=== PATIENT | male | born 1950 | race African-American/Black ===

== ENCOUNTER 2017-03-24 16:13 | Inpatient (IN) | END 2017-03-25 13:57 | disposition home or self-care (01) | DRG 558 ==

== ENCOUNTER 2017-05-21 13:04 | Emergency (ER) | END 2017-05-21 19:32 | disposition home or self-care (01) ==

== ENCOUNTER 2017-06-22 23:30 | Inpatient (IN) | END 2017-06-23 15:55 | disposition home or self-care (01) | DRG 292 ==

== ENCOUNTER 2018-03-23 13:17 | Observation (INO) | payer OTHER ==
[~2018-03-23] VITALS: Ht 177.8 cm; Wt 95.1 kg
[~2018-03-23 13:17] MED LIST: CAR8 PO; COU10 PO; DILT120C77 PO; ERGO500013 PO; FURO20TA3 PO; INSU100I12 SQ; LABE100T7 PO; LANT3I SC; LATA2.5D19 BOTH EYES; MAGN400T28 PO; MULTI PO; MYCO250C3 PO; PANT20TA2 PO; PHOS250T2 PO; PRED5TAB PO; TACR0.5C18 PO; TACR1CAP26 PO; VALC450 PO
[2018-03-23] MEDS ORDERED: NITROGLYCERIN 2% 1 GM OINT PKT TD STA (13:22)
[2018-03-23] MEDS ORDERED: FUROSEMIDE 40 MG INJ IV STA (13:22)
[2018-03-23] MEDS ORDERED: CEFEPIME 1GM/50 ML (PMX) 50 ML IVPB ONE (14:30)
[2018-03-23] MEDS ORDERED: VANCOMYCIN 1 GM (PMX) 250 ML IVPB ONE (14:30)
[2018-03-23] MEDS ORDERED: BUME1TAB PO (14:46)
[2018-03-23] MEDS ORDERED: DILT360C27 ORAL (14:46)
[2018-03-23] MEDS ORDERED: CARV12.598 PO (14:50)
[2018-03-23] MEDS ORDERED: CARV6.25 PO (14:50)
[2018-03-23] MEDS ORDERED: MYCO250C3 PO (14:50)
[2018-03-23] MEDS ORDERED: MAGN400T28 PO (14:53)
[2018-03-23] MEDS ORDERED: LANT3I SC (14:53)
[2018-03-23] MEDS ORDERED: IRBE300T15 PO (14:53)
[2018-03-23] MEDS ORDERED: APIX5TAB PO (14:54)
--- NOTE | 2018-03-23 14:55 | ERD ---
ER Documentation Chief Complaint Chief Complaint SOB sudden onset started 2 hour ago HPI Patient is a 67-year-old male with a history of kidney transplant, diabetes, hypertension, and CHF who presents with shortness of breath. The patient was brought in by ambulance. The patient had shortness of breath and high blood pressure. Oxygen saturation was 88% by paramedics. He was given nitroglycerin and oxygen. His symptoms started 1 hour ago. Upon review of old medical records this is the patient's fourth visit to the ER with admissions since 2018. ROS All systems reviewed and are negative except as per history of present illness. Medications Home Meds Active Scripts Furosemide* (Furosemide*) 20 Mg Tablet, 20 MG PO DAILY, #60 TAB Prov:JONO LAMBERT MD 06/23/17 Warfarin Sodium (Coumadin) 10 Mg Tablet, 10 MG PO DAILY@17 for 30 Days, #30 TAB Take your Coumadin as you were previously with no changes Prov:JONO LAMBERT MD 06/23/17 Insulin Glargine* (Lantus*) 100 Unit/Ml Soln, 40 UNIT SC QHS, #1 VIAL Prov:JONO LAMBERT MD 06/23/17 Reported Medications Carvedilol* (Coreg*) 6.25 Mg Tablet, 6.25 MG PO HS, #60 TAB 03/23/18 Carvedilol* (Coreg*) 12.5 Mg Tablet, 12.5 MG PO AM, #60 TAB 03/23/18 Mycophenolate Mofetil* (Cellcept*) 250 Mg Capsule, 500 MG PO BID, CAP 03/23/18 Bumetanide* (Bumetanide*) 1 Mg Tablet, 1 MG PO DAILY, TAB 03/23/18 Diltiazem Hcl (Diltiazem Er) 360 Mg Capsule.sa, 360 MG ORAL DAILY 03/23/18 Ergocalciferol (Vitamin D2) (VITAMIN D2) 50,000 Unit Capsule, 42024 UNIT PO Q7D, CAP 05/21/17 Insulin Lispro (Humalog Kwikpen U-100) 100 Unit/1 Ml Insuln.pen, 25 UNIT SQ TID, EA 05/21/17 Magnesium Oxide* (Magnesium Oxide*) 400 Mg Tablet, 400 MG PO TID, TAB 05/21/17 Phosphorus #1 (Phospha 250 Neutral Tablet) 250 Mg Tablet, 250 MG PO TID, TAB 05/21/17 Latanoprost (Xalatan) 2.5 Ml Drops, 1 DROP BOTH EYES QHS, #1 BOTTLE 05/21/17 Doxazosin Mesylate* (Cardura*) 8 Mg Tablet, 8 MG PO DAILY for 30 Days, TAB 05/21/17 Multivitamins* (Theragran*) 1 Tab Tab, 1 TAB PO DAILY, TAB 05/21/17 Pantoprazole* (Protonix*) 20 Mg Tablet.dr, 40 MG PO DAILY, TAB 05/21/17 Labetalol Hcl* (Labetalol Hcl*) 100 Mg Tablet, 200 MG PO TID, TAB 05/21/17 Valganciclovir* (Valcyte*) 450 Mg Tablet, 450 MG PO DAILY, TAB 05/21/17 Prednisone* (Prednisone*) 5 Mg Tab, 5 MG PO DAILY, TAB 05/21/17 Mycophenolate Mofetil* (Cellcept*) 250 Mg Capsule, 250 MG PO BID, CAP TAKE 2 TAB-9AM,AND 1 TAB-9PM 05/21/17 Tacrolimus* (Prograf*) 1 Mg Capsule, 5 MG PO Q12, CAP 05/21/17 Tacrolimus* (Prograf*) 0.5 Mg Capsule, 0.5 MG PO Q12, CAP 05/21/17 Discontinued Reported Medications Diltiazem Hcl* (Cardizem CD*) 120 Mg Cap.sr.24h, 120 MG PO DAILY, #30 CAP 05/21/17 Allergies Allergies: Coded Allergies: No Known Allergy (Unverified , 06/22/17) PMhx/Soc History of Surgery: Yes (Kidney transplan, Penile implant, hernia mesh) Anesthesia Reaction: No Hx Neurological Disorder: No Hx Respiratory Disorders: No Hx Cardiac Disorders: Yes (CHF) Hx Psychiatric Problems: No Hx Miscellaneous Medical Probl: Yes (Hep C) Hx Alcohol Use: Yes Hx Substance Use: No Hx Tobacco Use: Yes Smoking Status: Unknown if ever smoked FmHx Family History: No diabetes Physical Exam Vitals Vital Signs Date Temp Pulse Resp B/P (MAP) Pulse Ox O2 O2 Flow FiO2 Time Delivery Rate 03/23/18 Nasal 3 14:22 Cannula 03/23/18 Nasal 3.0 14:22 Cannula 03/23/18 98.1 80 20 155/98 96 14:00 (117) Physical Exam Const: No acute distress Head: Atraumatic Eyes: Normal Conjunctiva ENT: Normal External Ears, Nose and Mouth. Neck: Full range of motion. No meningismus. Resp: Decreased breath sounds bilaterally Cardio: Regular rate and rhythm, no murmurs Abd: Soft, non tender, non distended. Normal bowel sounds Skin: No petechiae or rashes Back: No midline or flank tenderness Ext: Left leg swelling greater than right Neur: Awake and alert Psych: Normal Mood and Affect Result Diagram: 03/23/18 1438 Results 24 hrs Laboratory Tests Test 03/23/18 14:38 03/23/18 14:43 White Blood Count 5.3 10^3/ul Red Blood Count 4.83 10^6/ul Hemoglobin 14.4 g/dl Hematocrit 46.8 % Mean Corpuscular Volume 96.9 fl Mean Corpuscular Hemoglobin 29.8 pg Mean Corpuscular Hemoglobin Concent 30.8 g/dl Red Cell Distribution Width 13.4 % Platelet Count 157 10^3/UL Mean Platelet Volume 10.4 fl Immature Granulocytes % 0.200 % Neutrophils % 68.8 % Lymphocytes % 22.9 % Monocytes % 6.6 % Eosinophils % 1.1 % Basophils % 0.4 % Nucleated Red Blood Cells % 0.0 /100WBC Immature Granulocytes # 0.010 10^3/ul Neutrophils # 3.6 10^3/ul Lymphocytes # 1.2 10^3/ul Monocytes # 0.4 10^3/ul Eosinophils # 0.1 10^3/ul Basophils # 0.0 10^3/ul Nucleated Red Blood Cells # 0.0 10^3/ul POC Venous Lactate 1.6 mmol/L Current Medications Medications Dose Sig/Sheila Start Time Status Last (Trade) Ordered Route PRN Stop Time Admin Dose Reason Admin 1 inch ONCE STAT 03/23/18 DC 03/23/18 Nitroglycerin TD 13:22 14:10 03/23/18 13:23 (Nitroglyceri n 2% Oint) Furosemide 20 mg ONCE STAT 03/23/18 DC 03/23/18 (Lasix) IV 13:22 14:10 03/23/18 13:23 Vancomycin 250 ml @ ONCE ONCE 03/23/18 HCl 125 mls/hr IVPB 14:30 03/23/18 16:29 Cefepime HCl 50 ml @ ONCE ONCE 03/23/18 03/23/18 100 mls/hr IVPB 14:30 14:49 03/23/18 14:59 Procedures/MDM EKG read by me: Rate/Rhythm: Atrial flutter with a regular ventricular rate Intervals: Normal Impression: A flutter without ischemia Chest x-ray shows bilateral pneumonia per radiology. Patient is a 67-year-old male who presents with shortness of breath. He was given nitroglycerin and oxygen by paramedics. His chest x-ray shows bilateral pneumonia. His EKG shows a flutter with a regular rate and no signs of ST elevations. The patient has a high risk for infection given the fact that he is on immunosuppression for his kidney transplant. Therefore he will be treated empirically with vancomycin and cefepime. The patient will need admission to the hospital. It is also possible that this could be pulmonary edema causing his shortness of breath and the patient was given nitroglycerin and Lasix. I am awaiting registration evaluation to determine the appropriate hospitalist to admit to. The patient will need admission to a telemetry bed. I doubt sepsis at this time. Departure Diagnosis: Primary Impression: PNA (pneumonia) Pneumonia type: due to unspecified organism Laterality: bilateral Lung location: lower lobe of lung Qualified Codes: J18.1 - Lobar pneumonia, unspecified organism Additional Impression: Shortness of breath Condition: JEWEL Crowe MD Mar 23, 2018 14:55
[2018-03-23] MEDS ORDERED: MELA10CA PO (14:58)
[2018-03-23] MEDS ORDERED: ACET500C5 PO (14:58)
[2018-03-23] MEDS ORDERED: UMEC1DIS INHALATION (14:58)
[2018-03-23] MEDS ORDERED: TACR4TAB PO (14:58)
[2018-03-23] MEDS ORDERED: ACETAMINOPHEN 325 MG TAB PO PRN ×2 (17:00→18:00)
[2018-03-23] MEDS ORDERED: ONDANSETRON 4 MG INJ IV PRN ×2 (17:00→18:00)
--- NOTE | 2018-03-23 17:25 | EN ---
Date/Time of Note Date/Time of Note DATE: 03/23/18 TIME: 17:12 ER Progress Note 15:10. Endorsed to me by Dr. Bautista pending response from Suzie for admission. 67-year-old male with history of diabetes, hypertension, status post renal transplant, atrial fib/flutter on Coumadin and congestive heart failure presented to the ED complaining of shortness of breath. CBC negative for leukocytosis or anemia. Chemistry no evidence of electrolyte abnormality or renal insufficiency. Troponin was 0.028. Lactate was less than 1.6 millimoles per liter. EKG revealed atrial flutter, 2-1 block without acute ischemic changes. Venous Doppler lower extremity were negative for DVT. After cultures patient was treated with presumed pneumonia with cefepime and vancomycin. Lasix 20 mg IV was given. Patient urinated over 1 L but was increasingly uncomfortable, tachycardic, hypertensive and complained of increasing suprapubic pain and distention. Abdomen is soft with suprapubic tenderness and distention. Bladder scan revealed over 1400 cc residual. Seaman catheter was placed and over 1500 cc of urine drained consistent with acute urinary retention. Symptoms resolved. Repeat EKG reveals atrial fibrillation with ventricular rate of 94 without ischemic changes. CALLS/CONSULTATIONS: 16:[address] Mar. Recommends admission to telemetry observation. MARTY ALEXIS MD Mar 23, 2018 17:24
[2018-03-23] MEDS ORDERED: NACL 0.9% 3 ML SYG IV SCH (18:00)
[2018-03-23] MEDS ORDERED: ZOLPIDEM 5 MG TAB PO PRN (18:00)
[2018-03-23] MEDS ORDERED: DOCUSATE SODIUM 100 MG CAP PO PRN (18:00)
[2018-03-23] MEDS ORDERED: FUROSEMIDE 40 MG INJ IV ONE (18:00)
[2018-03-23 18:22] VITALS: PULSE 96
[2018-03-23 18:30] VITALS: BP 177/85; PULSE 100; RESP 18
[2018-03-23] MEDS ORDERED: ACETAMINOPHEN 500 MG TAB PO PRN (18:30)
[2018-03-23 18:40] VITALS: Ht 177.8 cm; Wt 95.1 kg
[2018-03-23 20:00] VITALS: BP 173/82; PULSE 86; PULSE 92; RESP 18
[2018-03-23] MEDS ORDERED: ENOXAPARIN 40 MG/0.4 ML SYG SC SCH (20:00)
[2018-03-23] MEDS: MAGNESIUM OXIDE 400 MG TAB PO SCH (20:14)
[2018-03-23] MEDS: DOXAZOSIN 4 MG TAB PO SCH (20:14)
[2018-03-23] MEDS: MYCOPHENOLATE 250 MG CAP PO SCH (20:32)
[2018-03-23] MEDS: LATANOPROST 0.005% 2.5 ML OPH BOTH EYES SCH (20:32)
[2018-03-23] MEDS ORDERED: INSULIN GLARGINE [LANTus] (100 UNITS/ML) SYG SC SCH (21:00)
[2018-03-24] VITALS (11 sets, daily range): BP systolic 129–160; BP diastolic 60–78; PULSE 60–97; RESP 17–20
[2018-03-24] MEDS: PANTOPRAZOLE (EC) 40 MG TAB PO SCH (05:48)
[2018-03-24] MEDS ORDERED: INSULIN ASPART [NOVOLOG] 3 ML PEN SC SCH (08:00)
[2018-03-24] MEDS: CEFTRIAXONE 1 GM/NS 50 ML IVPB SCH (08:49)
[2018-03-24] MEDS: MAGNESIUM OXIDE 400 MG TAB PO SCH ×2 (08:52→22:40)
[2018-03-24] MEDS: DILTIAZEM (CD) 180 MG CAP PO SCH (08:53)
[2018-03-24] MEDS: MYCOPHENOLATE 250 MG CAP PO SCH ×2 (08:54→22:40)
[2018-03-24] MEDS: AZITHROMYCIN 250 MG TAB PO SCH (08:55)
[2018-03-24] MEDS: predniSONE 10 MG TAB PO SCH (08:55)
[2018-03-24] MEDS: SOD PHOS MONO/DIBAS 250 MG TAB PO SCH (08:55)
[2018-03-24] MEDS: LOSARTAN 50 MG TAB PO SCH (08:56)
[2018-03-24] MEDS ORDERED: CEFTRIAXONE 1 GM INJ IM ONE (09:00)
[2018-03-24] MEDS ORDERED: TACROLIMUS 4 MG PO SCH (09:00)
[2018-03-24] MEDS ORDERED: NON-FORMULARY/PATIENT OWN MED (Umeclidinium Brm-Vilanterol Tr (Anoro Ellipta) 1 EACH) INHALATION SCH (09:00)
[2018-03-24] MEDS: TACROLIMUS XX SCH ×2 (11:00→17:30)
[2018-03-24] MEDS: [UNRECOGNIZED DRUG - OTHER] XX SCH ×2 (11:00→17:30)
[2018-03-24] MEDS: MULTIVITAMINS THERAPEUTIC TAB PO SCH (11:15)
[2018-03-24] MEDS: APIXABAN 5 MG TABLET PO SCH ×2 (11:15→22:42)
[2018-03-24] MEDS: BUMETANIDE 1 MG TAB PO SCH (11:18)
[2018-03-24] MEDS ORDERED: DEXTROSE 50% 50 ML SYRINGE IV PRN ×2 (11:30)
[2018-03-24] MEDS ORDERED: DEXTROSE 50% 50 ML SYRINGE IV ONE (11:30)
[2018-03-24] MEDS ORDERED: GLUCAGON 1 MG INJ IM PRN (11:30)
[2018-03-24] MEDS ORDERED: GLUCOSE GEL 15 GRAM TUBE PO PRN ×2 (11:30)
[2018-03-24] MEDS ORDERED: GLUCOSE GEL 15 GRAM TUBE BUCCAL PRN (11:30)
--- NOTE | 2018-03-24 11:41 | HP ---
Date/Time of Note Date/Time of Note DATE: 03/24/18 TIME: 11:21 Assessment/Plan VTE Prophylaxis Risk score (from Ns)>0 risk: 5 SCD applied (from Ns): Yes Pharmacological prophylaxis: apixaban Lines/Catheters IV [facility]ter Type (from [facility]): Peripheral IV Urinary Cath still in place: Yes Reason Cath still needed: urinary retention (Episode noted.) Assessment/Plan Assessment/Plan 67-year-old male with: 1. Respiratory insufficiency, shortness of breath that could be consistent with mild diastolic CHF exacerbation. Patient on diuretics. Repeat chest x-ray pe nding. Continue Bumex, 2D echocardiogram was ordered to reevaluate ejection fraction. Weaning supplemental oxygen, Eliquis resumed. 2. Atrial flutter/fibrillation, rate controlled currently, continue outpatient medication and resume anticoagulation with Eliquis. 3. Diabetes mellitus, insulin requiring, hypoglycemic episode today, adjusting Lantus, it was already decreased to 60 units nightly from his outpatient 90 units. Pre-meal insulin decreased to 10 units q. before meals with holding pa rameters for blood glucose less than 100 pre-meal. A1c 10.5. 4. Diastolic congestive heart failure, repeat 2D echocardiogram pending, continue diuretics. 5. Possible community-acquired pneumonia, repeat chest x-ray pending, patient currently on Rocephin and azithromycin. 6. Hypertension: Continue outpatient medications. 7. Status post renal transplant, continue immunosuppressive agents including tacrolimus and prednisone. Renal function stable currently. Prophylaxis: Patient tolerating p.o. well, Eliquis resumed for stroke prophylaxis. Disposition: Patient currently on observation on telemetry, will reevaluate in the next 24 hours and if respiratory status back to baseline, will proceed with home discharge hopefully. Result Diagram: 03/24/1851603/24/18516 Results 24hrs Laboratory Tests Test 03/23/18 14:38 03/23/18 14:43 03/23/18 17:12 03/23/18 17:34 White Blood Count 5.3 Red Blood Count 4.83 # Hemoglobin 14.4 # Hematocrit 46.8 # Mean Corpuscular 96.9 Volume Mean Corpuscular 29.8 Hemoglobin Mean Corpuscular 30.8 L Hemoglobin Concent Red Cell 13.4 Distribution Width Platelet Count 157 # Mean Platelet Volume 10.4 Immature 0.200 Granulocytes % Neutrophils % 68.8 Lymphocytes % 22.9 Monocytes % 6.6 Eosinophils % 1.1 Basophils % 0.4 Nucleated Red Blood 0.0 Cells % Immature 0.010 Granulocytes # Neutrophils # 3.6 Lymphocytes # 1.2 Monocytes # 0.4 Eosinophils # 0.1 Basophils # 0.0 Nucleated Red Blood 0.0 Cells # Prothrombin Time 13.2 # Prothrombin Time 1.0 Ratio INR International 0.99 Normalized Ratio Sodium Level 144 Potassium Level 4.3 Chloride Level 108 Carbon Dioxide Level 28 Anion Gap 8 Blood Urea Nitrogen 10 Creatinine 0.70 Est Glomerular > 60 Filtrat Rate mL/min Glucose Level 97 Calcium Level 9.6 Troponin I 0.028 POC Venous Lactate 1.6 1.6 Urine Color STRAW Urine Clarity CLEAR Urine pH 8.0 Urine Specific 1.006 [place] Urine Ketones NEGATIVE Urine Nitrite NEGATIVE Urine Bilirubin NEGATIVE Urine Urobilinogen NEGATIVE Urine Leukocyte NEGATIVE Esterase Urine Microscopic 0 RBC Urine Microscopic 1 WBC Urine Bacteria FEW A Urine Mucus FEW A Urine Hemoglobin NEGATIVE Urine Glucose NEGATIVE Urine Total Protein 1+ H Test 03/23/18 18:33 03/23/18 19:12 03/23/18 20:13 03/24/18 01:12 Bedside Glucose 70 137 Lactic Acid Level 1.7 Creatine Kinase 291 H 186 Creatine Kinase 1.1 1.2 Index Creatinine Kinase MB 3.20 H 2.21 (Mass) Troponin I 0.037 0.042 Test 03/24/18 03:46 03/24/18 04:05 03/24/18 04:19 03/24/18 05:17 Bedside Glucose 53 L 70 109 White Blood Count 5.4 Red Blood Count 4.36 L Hemoglobin 13.0 L Hematocrit 42.0 Mean Corpuscular 96.3 Volume Mean Corpuscular 29.8 Hemoglobin Mean Corpuscular 31.0 L Hemoglobin Concent Red Cell 13.5 Distribution Width Platelet Count 166 Mean Platelet Volume 10.7 H Immature 0.400 Granulocytes % Neutrophils % 75.9 Lymphocytes % 13.8 L Monocytes % 8.4 Eosinophils % 1.1 Basophils % 0.4 Nucleated Red Blood 0.0 Cells % Immature 0.020 Granulocytes # Neutrophils # 4.1 Lymphocytes # 0.7 L Monocytes # 0.5 Eosinophils # 0.1 Basophils # 0.0 Nucleated Red Blood 0.0 Cells # Sodium Level 140 Potassium Level 3.5 Chloride Level 109 Carbon Dioxide Level 25 Anion Gap 6 Blood Urea Nitrogen 12 Creatinine 0.85 Est Glomerular > 60 Filtrat Rate mL/min Glucose Level 152 Hemoglobin A1c 10.5 H Calcium Level 9.1 Test 03/24/18 08:01 03/24/18 10:40 03/24/18 10:43 03/24/18 11:09 Bedside Glucose 110 41 *L 34 *L 36 *L HPI/ROS Admit Date/Time Admit Date/Time Mar 23, 2018 at 16:46 Hx of Present Illness Chief complaint: Shortness of breath History of presenting illness: This is a 67-year-old male with known history of diastolic congestive heart failure, currently on Bumex as an outpatient, status post renal transplant, diabetes mellitus insulin requiring, atrial fibrillation/flutter rate control and on Eliquis who presented the emergency department with complaint of shortness of breath for couple hours prior to ER presentation. Patient reports that he had an acute onset approximately 2 hours prior to admission, no chest pain, no palpitation reported. He has been diuresing fairly well with Bumex at home, no episodes of lower extremity edema he is reporting. He is on large doses of insulin including Lantus 90 units nightly and Humalog 15 units q. before meals, he reports that he has had hypoglycemic episodes at home in the past but unable to give us a specific number, in the ER he was noted to have a blood sugar of 53 few hours after presentation. This morning he is noted to have a significant hypoglycemia with blood sugars down to mid 30s requiring D50 to be given. Chest x-ray on admission did show some perihilar infiltrates but it is unclear if it CHF versus pneumonia, patient white blood cell is within normal and he has no other clinical signs of pneumonia. He did receive Lasix in the ER, his Bumex is resumed. He was started on antibiotics. Repeat chest x-ray pending this morning. Also Dopplers of the lower extremity were done negative for DVT, patient on Eliquis which was resumed also this morning. He is currently hemodynamically stable but hypoglycemic which is being treated. We will reevaluate later this afternoon and hopefully discharge planning in the next 24 hours if respiratory status back to baseline. Patient denies any fevers, cough at home. No sick contacts. ROS Constitutional: other (Lethargy and confusion in setting of hypoglycemic episode.) Eyes: no complaints ENT: no complaints Respiratory: shortness of breath Cardiovascular: no complaints Gastrointestinal: no complaints Genitourinary: no complaints Musculoskeletal: no complaints Skin: no complaints Neurologic: no complaints Endocrine: other (Hypoglycemia) Psychological: no complaints, nl mood/affect Immunologic: no complaints PMH/Family/Social Past Medical History Chronic AFib/flutter ESRD previously on HD now s/p renal transplant Diabetes mellitus insulin requiring Congestive heart failure, diastolic dysfunction, echocardiogram pending to reevaluate EF Hypertension Medications Current Medications IV Flush (NS 3 ml) 3 ml PER PROTOCOL IV ; Start 03/23/18 at 18:00 Ondansetron HCl (Zofran Inj) 4 mg Q6H PRN IV NAUSEA AND/OR VOMITING; Start 03/23/18 at 18:00 Zolpidem Tartrate (Ambien) 5 mg QHS PRN PO INSOMNIA; Start 03/23/18 at 18:00 Docusate Sodium (Colace) 100 mg Q12H PRN PO CONSTIPATION; Start 03/23/18 at 18:00 Pantoprazole (Protonix Tab) 40 mg DAILY@06 PO Last administered on 03/24/18at 05:48; Admin Dose 40 MG; Start 03/24/18 at 06:00 Azithromycin (Zithromax) 500 mg DAILY PO Last administered on 03/24/18at 08:55; Admin Dose 500 MG; Start 03/24/18 at 09:00 Acetaminophen (Tylenol Tab) 500 mg Q6H PRN PO PAIN LEVEL 1-3; Start 03/23/18 at 18:30 Carvedilol (Coreg) 12.5 mg AM PO Last administered on 03/24/18at 08:54; Admin D ose 12.5 MG; Start 03/24/18 at 09:00 Diltiazem HCl (Cardizem Cd) 360 mg DAILY PO Last administered on 03/24/18at 08:53; Admin Dose 360 MG; Start 03/24/18 at 09:00 Doxazosin Mesylate (Cardura) 8 mg QHS PO Last administered on 03/23/18at 20:14; Admin Dose 8 MG; Start 03/23/18 at 21:00 Latanoprost (Xalatan) 1 drop QHS BOTH EYES Last administered on 03/23/18at 20:32; Admin Dose 1 DROP; Start 03/23/18 at 21:00 Magnesium Oxide (Mag-Ox 400) 400 mg BID PO Last administered on 03/24/18at 08:52; Admin Dose 400 MG; Start 03/23/18 at 21:00 Mycophenolate Mofetil (Cellcept) 500 mg BID PO Last administered on 03/24/18at 08:54; Admin Dose 500 MG; Start 03/23/18 at 21:00 Sodium Phosphate (Kphos Neutral) 250 mg DAILY PO Last administered on 03/24/18 08:55; Admin Dose 250 MG; Start 03/24/18 at 09:00 Prednisone (Prednisone) 10 mg DAILY PO Last administered on 03/24/18 08:55; Admin Dose 10 MG; Start 03/24/18 at 09:00 Losartan Potassium (Cozaar) 100 mg DAILY PO Last administered on 03/24/18at 08:56; Admin Dose 100 MG; Start 03/24/18 at 09:00 Miscellaneous Information 4 mg DAILY PO ; Start 03/24/18 at 09:00; Status UNV Miscellaneous Information 1 each DAILY INHALATION ; Start 03/24/18 at 09:00; Status UNV Ceftriaxone Sodium 50 ml @ 100 mls/hr Q24H IVPB Last administered on 03/24/18at 08:49; Admin Dose 100 MLS/HR; Start 03/24/18 at 09:00 Insulin Glargine (Lantus) 60 units QHS SC ; Start 03/24/18 at 21:00 Hydralazine HCl (Apresoline) 25 mg Q6H PRN PO SBP GREATER THAN 160; Start 03/24/18 at 07:00 Miscellaneous Information (*Order Clarification Bulletin) MEDICATION REQUIRES CLARIFICATI... Q8H XX ; Start 03/24/18 at 11:00 Apixaban (Eliquis) 5 mg BID PO Last administered on 03/24/18 11:15; Admin Dose 5 MG; Start 03/24/18 at 11:00 Bumetanide (Bumex) 1 mg DAILY@0600 PO Last administered on 03/24/18 11:18; Admin Dose 1 MG; Start 03/24/18 at 11:00 Multivitamins Therapeutic (Theragran) 1 tab DAILY PO Last administered on 03/24/18at 11:15; Admin Dose 1 TAB; Start 03/24/18 at 11:00 Dextrose (D50w Syringe) 50 ml ONCE ONCE IV Last administered on 03/24/18at 11:16; Admin Dose 50 ML; Start 03/24/18 at 11:30; Stop 03/24/18 at 11:31 Miscellaneous Information (* Miscellaneous Pharmacy Order) HYPOGLYCEMIA PROTOCOL w... ONCE ONCE XX ; Start 03/24/18 at 11:30; Stop 03/24/18 at 11:31 Insulin Aspart (Novolog Insulin Pen) 10 unit WITH MEALS SC ; Start 03/24/18 at 12:00; Status UNV Miscellaneous Information (* Miscellaneous Pharmacy Order) Discontinue current oral sulfonylur... ONCE ONCE XX ; Start 03/24/18 at 11:30; Stop 03/24/18 at 11:31 Diagnostic Test (Pha) (Accu-Chek) 1 ea 02 XX ; Start 03/25/18 at 02:00; Status UNV Insulin Aspart (Novolog Insulin Pen) NOVOLOG *MILD* ALGORITHM WITH MEALS BEDTIME SC ; Start 03/24/18 at 12:00; Status UNV Miscellaneous Information (* Miscellaneous Pharmacy Order) Discontinue all previ... ONCE ONCE XX ; Start 03/24/18 at 11:30; Stop 03/24/18 at 11:31 Miscellaneous Information 1 ea NOTE XX ; Start 03/24/18 at 11:30 Glucose (Glutose) 15 gm Q15M PRN PO DECREASED GLUCOSE; Start 03/24/18 at 11:30 Glucose (Glutose) 22.5 gm Q15M PRN PO DECREASED GLUCOSE; Start 03/24/18 at 11:30 Dextrose (D50w Syringe) 25 ml Q15M PRN IV DECREASED GLUCOSE; Start 03/24/18 at 11:30 Dextrose (D50w Syringe) 50 ml Q15M PRN IV DECREASED GLUCOSE; Start 03/24/18 at 11:30 Glucagon (Glucagen) 1 mg Q15M PRN IM DECREASED GLUCOSE; Start 03/24/18 at 11:30 Glucose (Glutose) 15 gm Q15M PRN BUCCAL DECREASED GLUCOSE; Start 03/24/18 at 11:30 Coded Allergies: No Known Allergy (Unverified , 03/24/18) Past Surgical History S/p Renal transplant S/p hernia repair S/p Cataract surgery S/p penile implant Past Surgical Hx: other Family History Significant Family History: cancer, other (CVA) Social History Alcohol Use: sober (Quit 30 years ago) Smoking Status: Former smoker (Quit 30 years ago) Drug Use: other (Former heroin user, 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.) Exam/Review of Systems Vital Signs Vitals Vital Signs Date Temp Pulse Resp B/P (MAP) Pulse Ox O2 O2 Flow FiO2 Time Delivery Rate 03/24/18 89 17 159/78 99 Nasal 2.0 09:39 (105) Cannula 03/24/18 98.2 07:15 Intake and Output 03/23/18 03/23/18 03/24/18 1515:00 23:00 07:00 IntakeIntake Total 200 ml 800 ml OutputOutput Total 1900 ml 1300 ml BalanceBalance -1700 ml -500 ml Exam Constitutional: alert, other (Currently slightly disoriented in setting of hypoglycemia.) Head: normocephalic, atraumatic Respiratory: clear to auscultation, normal air movement Cardiovascular: irregular rhythm (Atrial flutter rate controlled.) Gastrointestinal: soft, non-tender Musculoskeletal: nl extremities to inspection Extremities: normal pulses, other (No edema, clubbing or cyanosis) Neurological: LOG BUYER II-XII intact, nl speech, confused (Likely in setting of hypoglycemia), lethargic Additional Comments PROCEDURE: XR Chest. CLINICAL INDICATION: Chest pain TECHNIQUE: Single portable view of the chest was obtained COMPARISON: No priors for comparison FINDINGS: The trachea is midline. The cardiac silhouette and pulmonary vascularity are within normal limits. Bilateral perihilar and lower lobe infiltrates are noted. The costophrenic angles are sharp. IMPRESSION: 1. Cardiomegaly. 2. Bilateral perihilar lower lobe infiltrates. Cannot exclude pneumonia in the appropriate clinical setting. RPTAT: AAPP Physician Anthony Date Time Electronically viewed and signed by Physician Anthony on 03/23/2018 13:58 PROCEDURE: US Lower extremity Venous. CLINICAL INDICATION: leg edema TECHNIQUE: Multiple sonographic images of the left lower extremity deep venous system was obtained utilizing grayscale, color-flow, compressive sonography and doppler imaging with augmentation. The images were reviewed on a PACS workstation. COMPARISON: None. FINDINGS: There is normal compressibility and flow within the left common femoral, femoral, posterior tibial, peroneal and popliteal veins. RPTAT: AA IMPRESSION: No sonographic evidence for deep venous thrombosis. .Zachary Ruiz MD, MD Date Time Electronically viewed and signed by .Zachary Ruiz MD, MD on 03/23/2018 14:32 .Eli/ BRANDON VERMA Mar 24, 2018 11:31
[2018-03-24] MEDS: INSULIN ASPART [NOVOLOG] 3 ML PEN SC SCH ×4 (14:47→17:20)
[2018-03-24] MEDS ORDERED: INSULIN GLARGINE [LANTus] (100 UNITS/ML) SYG SC SCH (21:00)
[2018-03-24] MEDS: LATANOPROST 0.005% 2.5 ML OPH BOTH EYES SCH (22:36)
[2018-03-24] MEDS: DOXAZOSIN 4 MG TAB PO SCH (22:42)
[2018-03-25] VITALS (9 sets, daily range): BP systolic 155–173; BP diastolic 62–79; PULSE 43–72; RESP 18–20
[2018-03-25] MEDS: INSULIN ASPART [NOVOLOG] 3 ML PEN SC SCH ×5 (00:16→11:25)
[2018-03-25] MEDS ORDERED: ACCU-CHEK XX SCH (02:00)
[2018-03-25] MEDS: [UNRECOGNIZED DRUG - OTHER] XX SCH ×2 (03:00→10:55)
[2018-03-25] MEDS: TACROLIMUS XX SCH ×2 (03:00→10:55)
[2018-03-25] MEDS: BUMETANIDE 1 MG TAB PO SCH (06:05)
[2018-03-25] MEDS: PANTOPRAZOLE (EC) 40 MG TAB PO SCH (06:05)
[2018-03-25] MEDS: MULTIVITAMINS THERAPEUTIC TAB PO SCH (08:38)
[2018-03-25] MEDS: CEFTRIAXONE 1 GM/NS 50 ML IVPB SCH (08:38)
[2018-03-25] MEDS: AZITHROMYCIN 250 MG TAB PO SCH (08:39)
[2018-03-25] MEDS: MYCOPHENOLATE 250 MG CAP PO SCH (08:39)
[2018-03-25] MEDS: APIXABAN 5 MG TABLET PO SCH (08:40)
[2018-03-25] MEDS: MAGNESIUM OXIDE 400 MG TAB PO SCH (08:40)
[2018-03-25] MEDS: LOSARTAN 50 MG TAB PO SCH (08:41)
[2018-03-25] MEDS: DILTIAZEM (CD) 180 MG CAP PO SCH (08:42)
[2018-03-25] MEDS: predniSONE 10 MG TAB PO SCH (08:45)
[2018-03-25] MEDS: SOD PHOS MONO/DIBAS 250 MG TAB PO SCH (10:04)
[2018-03-25] MEDS ORDERED: MAGNESIUM SULFATE 1 GM/D5W 100 ML IVPB ONE (13:00)
--- NOTE | 2018-03-25 13:12 | PDOCDIS ---
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
[2018-03-25] MEDS ORDERED: DOXY100C PO (13:16)
--- NOTE | 2018-03-25 13:26 | PN ---
Date/Time of Note Date/Time of Note DATE: 03/25/18 TIME: 13:18 Assessment/Plan VTE Prophylaxis Risk score (from Nsg)>0 risk: 6 SCD applied (from Nsg): Yes Pharmacological prophylaxis: apixaban Lines/Catheters IV Catheter Type (from Nrsg): Peripheral IV Urinary Cath still in place: No Assessment/Plan Assessment/Plan 67-year-old male with: 1. Respiratory insufficiency, shortness of breath that could be consistent with mild diastolic CHF exacerbation. Symptoms resolved. Patient back on his Bumex for diuresis, chest x-ray done yesterday afternoon was improved. Patient on room air for the past 24 hours. 2D echocardiogram did confirm diastolic dysfunction with ejection fraction of 60%. Back on Eliquis. 2. Atrial flutter/fibrillation, rate controlled currently, continue outpatient medication and on Eliquis. Patient noted to have one episode of 6 beats of VT today completely asymptomatic, 2D echocardiogram again with reserved ejection fraction and electrolytes within normal. Patient already on oral magnesium oxide to be continued, current medication to be also continued, avoiding proarrhythmic agents such as antibiotics, azithromycin or Levaquin. Azithromycin was discontinued today. 3. Diabetes mellitus, insulin requiring, blood sugars back to his baseline b orderline in the 200s, resuming outpatient insulin regimen at discharge today. Patient is to follow-up with his PCP for further titration and also be compliant with a diabetic diet for more accurate titration. No further hypoglycemic episodes. A1c 10.5. 4. Diastolic congestive heart failure, confirmed on repeat 2D echocardiogram with ejection fraction of 60%, continue outpatient dose of Bumex. 5. Possible community-acquired pneumonia, repeat chest x-ray showing mixed infiltrate, patient was noted to have 6 beats of V. tach this morning completely asymptomatic with a normal ejection fraction, no further cardiac workup needed however have discontinued azithromycin avoiding fluoroquinolone due to their tendency to prolonged QTC. Patient is being discharged on doxycycline 100 mg p.o. twice daily for 5 more days to complete 7 days treatment for possible CAP. 6. Hypertension: Continue outpatient medications. 7. Status post renal transplant, continue immunosuppressive agents including tacrolimus and prednisone. Renal function stable currently. Prophylaxis: Patient tolerating p.o. well, Eliquis for stroke prophylaxis. Disposition: Discharge home today with outpatient follow-up with his volunteer services coordinator and primary care physician. Also home health RN ordered. Result Diagram: 03/25/18 0506 03/25/18 0506 Results 24hrs Laboratory Tests Test 03/24/18 14:36 03/24/18 17:17 03/24/18 22:19 03/24/18 23:56 Bedside Glucose 327 H 271 H 274 H 314 H Test 03/25/18 04:52 03/25/18 05:06 03/25/18 07:43 03/25/18 11:21 Bedside Glucose 296 H 228 H 196 White Blood Count 3.9 #L Red Blood Count 4.48 L Hemoglobin 13.5 L Hematocrit 42.6 Mean Corpuscular 95.1 Volume Mean Corpuscular 30.1 Hemoglobin Mean Corpuscular 31.7 L Hemoglobin Concent Red Cell 13.7 Distribution Width Platelet Count 161 Mean Platelet Volume 10.8 H Immature 0.300 Granulocytes % Neutrophils % 60.9 Lymphocytes % 28.3 Monocytes % 8.4 Eosinophils % 1.3 Basophils % 0.8 Nucleated Red Blood 0.0 Cells % Immature 0.010 Granulocytes # Neutrophils # 2.4 Lymphocytes # 1.1 Monocytes # 0.3 Eosinophils # 0.1 Basophils # 0.0 Nucleated Red Blood 0.0 Cells # Sodium Level 142 Potassium Level 4.3 Chloride Level 105 Carbon Dioxide Level 26 Anion Gap 11 Blood Urea Nitrogen 13 Creatinine 0.78 Est Glomerular > 60 Filtrat Rate mL/min Glucose Level 229 #H Calcium Level 9.3 Magnesium Level 1.9 Subjective 24 Hr Interval Summary Free Text/Dictation Patient doing well, no complaints today, on room air, continue incentive spirometer, stable with his Bumex p.o. for diuresis. Renal function is stable. Blood sugars are back to his baseline. Patient ambulatory, will discharge home today with outpatient cardiology follow-up and outpatient PCP follow-up. Also home health RN check. Exam/Review of Systems Vital Signs Vitals Vital Signs Date Temp Pulse Resp B/P (MAP) Pulse Ox O2 O2 Flow FiO2 Time Delivery Rate 03/25/18 62 12:00 03/25/18 98.5 18 156/71 95 Room Air 11:17 (99) 03/24/18 2.0 21:03 Intake and Output 03/24/18 03/24/18 03/25/18 1515:00 23:00 07:00 IntakeIntake Total 50 ml 800 ml 440 ml OutputOutput Total 800 ml 850 ml BalanceBalance -750 ml 800 ml -410 ml Exam Constitutional: alert, oriented, well developed Respiratory: clear to auscultation, normal air movement Cardiovascular: irregular rhythm (Chronic A. 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, nl mental status, nl speech, nl strength Medications Medications Current Medications IV Flush (NS 3 ml) 3 ml PER PROTOCOL IV ; Start 03/23/18 at 18:00 Ondansetron HCl (Zofran Inj) 4 mg Q6H PRN IV NAUSEA AND/OR VOMITING; Start at 18:00 Zolpidem Tartrate (Ambien) 5 mg QHS PRN PO INSOMNIA; Start 03/23/18 at 18:00 Docusate Sodium (Colace) 100 mg Q12H PRN PO CONSTIPATION; Start 03/23/18 at 18:00 Pantoprazole (Protonix Tab) 40 mg DAILY@06 PO Last administered on 03/25/18at 06:05; Admin Dose 40 MG; Start 03/24/18 at 06:00 Acetaminophen (Tylenol Tab) 500 mg Q6H PRN PO PAIN LEVEL 1-3; Start 03/23/18 at 18:30 Carvedilol (Coreg) 12.5 mg AM PO Last administered on 03/25/18at 08:41; Admin Dose 12.5 MG; Start 03/24/18 at 09:00 Diltiazem HCl (Cardizem Cd) 360 mg DAILY PO Last administered on 03/25/18at 08:42; Admin Dose 360 MG; Start 03/24/18 at 09:00 Doxazosin Mesylate (Cardura) 8 mg QHS PO Last administered on 03/24/18at 22:42; Admin Dose 8 MG; Start 03/23/18 at 21:00 Latanoprost (Xalatan) 1 drop QHS BOTH EYES Last administered on 03/24/18at 22:36; Admin Dose 1 DROP; Start 03/23/18 at 21:00 Magnesium Oxide (Mag-Ox 400) 400 mg BID PO Last administered on 03/25/18at 08:40; Admin Dose 400 MG; Start 03/23/18 at 21:00 Mycophenolate Mofetil (Cellcept) 500 mg BID PO Last administered on 03/25/18 08:39; Admin Dose 500 MG; Start 03/23/18 at 21:00 Sodium Phosphate (Kphos Neutral) 250 mg DAILY PO Last administered on 03/25/18 10:04; Admin Dose 250 MG; Start 03/24/18 at 09:00 Prednisone (Prednisone) 10 mg DAILY PO Last administered on 03/25/18 08:45; Admin Dose 10 MG; Start 03/24/18 at 09:00 Losartan Potassium (Cozaar) 100 mg DAILY PO Last administered on 03/25/18 08:41; Admin Dose 100 MG; Start 03/24/18 at 09:00 Miscellaneous Information 4 mg DAILY PO ; Start 03/24/18 at 09:00; Status UNV Miscellaneous Information 1 each DAILY INHALATION ; Start 03/24/18 at 09:00; Status UNV Ceftriaxone Sodium 50 ml @ 100 mls/hr Q24H IVPB Last administered on 03/25/18 08:38; Admin Dose 100 MLS/HR; Start 03/24/18 at 09:00 Insulin Glargine (Lantus) 60 units QHS SC Last administered on 03/24/18 22:40; Admin Dose 60 UNITS; Start 03/24/18 at 21:00 Hydralazine HCl (Apresoline) 25 mg Q6H PRN PO SBP GREATER THAN 160 Last administered on 03/25/18 04:48; Admin Dose 25 MG; Start 03/24/18 at 07:00 Miscellaneous Information (*Order Clarification Bulletin) MEDICATION REQUIRES CLARIFICATI... Q8H XX Last administered on 03/25/18 03:00; Admin Dose 1 EA; Start 03/24/18 at 11:00 Apixaban (Eliquis) 5 mg BID PO Last administered on 03/25/18 08:40; Admin Dose 5 MG; Start 03/24/18 at 11:00 Bumetanide (Bumex) 1 mg DAILY@0600 PO Last administered on 03/25/18 06:05; Admin Dose 1 MG; Start 03/24/18 at 11:00 Multivitamins Therapeutic (Theragran) 1 tab DAILY PO Last administered on 03/25/18 08:38; Admin Dose 1 TAB; Start 03/24/18 at 11:00 Insulin Aspart (Novolog Insulin Pen) 10 unit WITH MEALS SC Last administered on 03/25/18at 11:25; Admin Dose 10 UNIT; Start 03/24/18 at 12:00 Diagnostic Test (Pha) (Accu-Chek) 1 ea 02 XX Last administered on 03/25/18at 02:00; Admin Dose 1 EA; Start 03/25/18 at 02:00 Insulin Aspart (Novolog Insulin Pen) NOVOLOG *MILD* ALGORITHM WITH MEALS BEDTIME SC Last administered on 03/25/18at 11:25; Admin Dose 2 UNIT; Start 03/24/18 at 12:00 Miscellaneous Information 1 ea NOTE XX ; Start 03/24/18 at 11:30 Glucose (Glutose) 15 gm Q15M PRN PO DECREASED GLUCOSE; Start 03/24/18 at 11:30 Glucose (Glutose) 22.5 gm Q15M PRN PO DECREASED GLUCOSE; Start 03/24/18 at 11:30 Dextrose (D50w Syringe) 25 ml Q15M PRN IV DECREASED GLUCOSE; Start 03/24/18 at 11:30 Dextrose (D50w Syringe) 50 ml Q15M PRN IV DECREASED GLUCOSE; Start 03/24/18 at 11:30 Glucagon (Glucagen) 1 mg Q15M PRN IM DECREASED GLUCOSE; Start 03/24/18 at 11:30 Glucose (Glutose) 15 gm Q15M PRN BUCCAL DECREASED GLUCOSE; Start 03/24/18 at 11:30 Imaging Imaging PROCEDURE: XR Chest. CLINICAL INDICATION: Shortness of breath TECHNIQUE: PA and lateral chest x-ray. COMPARISON: CHEST 03/23/2018 FINDINGS: Mild improvement in mixed bibasilar interstitial infiltrates. No pleural effusion. No pneumothorax. The cardiomediastinal silhouette is unremarkable. Vascular calcifications of the aorta are present compatible with atherosclerosis. IMPRESSION: Mild improvement in mixed bibasilar interstitial infiltrates. RPTAT: AADD .Sammy Pierre MD, MD Date Time Electronically viewed and signed by .Sammy Pierre MDMD on 03/24/2018 12:01 Echocardiogram Report Patient Name: KADE GIRON Gender: Male Date: 1950 Study Date: 24-Mar-2017 Accounts Specialist: Jyotsna Vang [facility] Location: [facility] Ref. Physician: CHIRAG HOFFMAN Quality: Good Procedures: Transthoracic echocardiogram with complete 2D, M-Mode, and doppler examination. Indications: Chest Pain. Kidney transplant patient. 2D/M Mode Doppler Measurement Value Normal Ranges Measurement Value Normal Ranges LVIDd 2D 3.9 3.5 - 5.6 cm AV Peak Catracho 1.5 m/sec LVIDs 2D 2.1 2.1 - 4.1 cm AV Peak PG 9.0 mmHg LVPWd 2D 1.8 0.6 - 1.1 cm LVOT Peak Catracho 1.2 m/sec IVSd 2D 1.6 0.6 - 1.1 cm LVOT Peak PG 5.7 mmHg AoR Diam 2D 3.1 2.0 - 3.7 cm TR Peak Catracho 2.9 m/sec EDV 2D 65.4 cm3 TR Peak PG 33.8 mmHg ESV 2D 8.8 cm3 RVSP 42.0 mmHg LA Dimen 2D 4.1 2.3 - 4.0 cm Findings Left Ventricle: Normal left ventricular systolic function. Normal left ventricular cavity size. Severe concentric left ventricular hypertrophy. Ejection fraction is visually estimated at 65 %. Abnormal Diastolic Function. Right Ventricle: Normal right ventricular size. Normal right ventricular systolic function. Left Atrium: There is mild enlargement of left atrium. Right Atrium: There is mild enlargement of right atrium. Mitral Valve: Mitral valve leaflets appear mildly thickened. Mild mitral annular calcification. Trace mitral regurgitation. Aortic Valve: Normal appearance of the aortic valve. No significant aortic stenosis or insufficiency. Tricuspid Valve: Normal appearance of the tricuspid valve. Estimated peak PA systolic pressure 42 mmHg. There is mild tricuspid regurgitation. Pulmonic Valve: Normal pulmonic valve appearance. Pericardium: Normal pericardium with no significant pericardial effusion. Aorta: Normal aortic root. IVC: Dilated IVC with respiratory collapse consistent with elevated right atrial pressure. Conclusions Normal left ventricular systolic function. Normal left ventricular cavity size. Severe concentric left ventricular hypertrophy. Ejection fraction is visually estimated at 65 %. Abnormal Diastolic Function. Normal right ventricular size. Normal right ventricular systolic function. There is mild enlargement of left atrium. There is mild enlargement of right atrium. Normal appearance of the tricuspid valve. Estimated peak PA systolic pressure 42 mmHg. There is mild tricuspid regurgitation. No significant valvular stenosis or regurgitation seen of remaining visualized valves. Normal pericardium with no significant pericardial effusion. Electronically Signed By: Alfredo Abernathy 24-Mar-2017 15:46:14 -0800 BRANDON VERMA Mar 25, 2018 13:26
--- NOTE | 2018-03-25 14:27 | DS ---
Date/Time of Note Date/Time of Note DATE: 03/25/18 TIME: 14:21 Discharge Summary Admission/Discharge Info Admit Date/Time Mar 23, 2018 at 16:46 Discharge Date/Time Mar 25, 2018 at 14:12 Discharge Diagnosis 1. Respiratory insufficiency, shortness of breath that could be consistent with mild diastolic CHF exacerbation. Symptoms resolved. 2. Atrial flutter/fibrillation, rate controlled currently 3. Diabetes mellitus, insulin requiring, 4. Hypoglycemia, resolved 5. Diastolic congestive heart failure 6. Possible community-acquired pneumonia 7. Hypertension. 8. Status post renal transplant Patient Condition: Stable Consults None Procedures None Hx of Present Illness Chief complaint: Shortness of breath History of presenting illness: This is a 67-year-old male with known history of diastolic congestive heart failure, currently on Bumex as an outpatient, status post renal transplant, diabetes mellitus insulin requiring, atrial fibrillation/flutter rate control and on Eliquis who presented the emergency department with complaint of shortness of breath for couple hours prior to ER presentation. Patient reports that he had an acute onset approximately 2 hours prior to admission, no chest pain, no palpitation reported. He has been diuresing fairly well with Bumex at home, no episodes of lower extremity edema he is reporting. He is on large doses of insulin including Lantus 90 units nightly and Humalog 15 units q. before meals, he reports that he has had hypoglycemic episodes at home in the past but unable to give us a specific number, in the ER he was noted to have a blood sugar of 53 few hours after presentation. This morning he is noted to have a significant hypoglycemia with blood sugars down to mid 30s requiring D50 to be given. Chest x-ray on admission did show some perihilar infiltrates but it is unclear if it CHF versus pneumonia, patient white blood cell is within normal and he has no other clinical signs of pneumonia. He did receive Lasix in the ER, his Bumex is resumed. He was started on antibiotics. Repeat chest x-ray pending this morning. Also Dopplers of the lower extremity were done negative for DVT, patient on Eliquis which was resumed also this morning. He is currently hemodynamically stable but hypoglycemic which is being treated. We will reevaluate later this afternoon and hopefully discharge planning in the next 24 hours if respiratory status back to baseline. Patient denies any fevers, cough at home. No sick contacts. Hospital Course Patient was admitted to telemetry, he remains in atrial fibrillation controlled, he is respiratory distress seems to have primarily triggered by possible mild diastolic CHF exacerbation versus correlated with episode of hypoglycemia. He was found to be hypoglycemic in the hospital on a reduced dose of insulin. Patient was encouraged to be compliant with ADA diet and insulin therapy. He was given a dose of Lasix and subsequently restarted on his oral Bumex. He remained stable on room air, no dyspnea on exertion or at rest. Chest x-ray keeps calling for mixed infiltrate cannot rule out pneumonia, therefore he was treated for possible community-acquired pneumonia. He was noted to have an episode of 6 beats of V. tach completely asymptomatic. Cardiac enzymes have remained negative on admission, 2D echocardiogram shows a preserved ejection fraction of 60% and patient had no further episodes. Electrolytes are stable he is on oral magnesium. Azithromycin was discontinued given its possible proarrhythmic effects. Patient was discharged in stable condition with outpatient cardiology follow-up, he is established with nurse practitioner Mukesh at Dr. Tj Lindo's office. He is also to follow-up with his primary care physician. For antibiotic coverage for community-acquired pneumonia, he was discharged on doxycycline x 5 more days which is the safest dose currently in his case. Home Meds Active Scripts Doxycycline* (Vibramycin*) 100 Mg Capsule, 100 MG PO BID for 5 Days, EA Starting 03/26/2018 Prov:Jethro VERMASocratesKATLYN Annie 03/25/18 Reported Medications Tacrolimus (Envarsus Xr) 4 Mg Tab.er.24h, 4 MG PO DAILY 03/23/18 Umeclidinium Brm-Vilanterol Tr (Anoro Ellipta) 62.5-25 Mcg Disk.w.dev, 1 EACH INHALATION DAILY, #1 DISK 03/23/18 Acetaminophen* (Tylophen*) 500 Mg Capsule, 500 MG PO Q6H PRN for PAIN LEVEL 1-3, TAB 03/23/18 Melatonin (Melatonin) 10 Mg Capsule, 10 MG PO HS, CAP 03/23/18 Apixaban* (Eliquis*) 5 Mg Tablet, 5 MG PO BID, TAB 03/23/18 Insulin Glargine* (Lantus*) 100 Unit/Ml Soln, 80 UNIT SC QHS, #1 VIAL 03/23/18 Irbesartan* (Irbesartan*) 300 Mg Tablet, 300 MG PO DAILY, TAB 03/23/18 Magnesium Oxide* (Magnesium Oxide*) 400 Mg Tablet, 400 MG PO BID, TAB 03/23/18 Carvedilol* (Coreg*) 12.5 Mg Tablet, 12.5 MG PO AM, #60 TAB 03/23/18 Mycophenolate Mofetil* (Cellcept*) 250 Mg Capsule, 500 MG PO BID, CAP 03/23/18 Bumetanide* (Bumetanide*) 1 Mg Tablet, 1 MG PO DAILY, TAB 03/23/18 Diltiazem Hcl (Diltiazem Er) 360 Mg Capsule.sa, 360 MG ORAL DAILY 03/23/18 Ergocalciferol (Vitamin D2) (VITAMIN D2) 50,000 Unit Capsule, 80406 UNIT PO Q7D, CAP Fridays05/21/17 Insulin Lispro (Humalog Kwikpen U-100) 100 Unit/1 Ml Insuln.pen, 15 UNIT SQ TID, EA 05/21/17 Phosphorus #1 (Phospha 250 Neutral Tablet) 250 Mg Tablet, 250 MG PO DAILY, TAB 05/21/17 Latanoprost (Xalatan) 2.5 Ml Drops, 1 DROP BOTH EYES QHS, #1 BOTTLE 05/21/17 Doxazosin Mesylate* (Cardura*) 8 Mg Tablet, 8 MG PO DAILY for 30 Days, TAB 05/21/17 Multivitamins* (Theragran*) 1 Tab Tab, 1 TAB PO DAILY, TAB 05/21/17 Prednisone* (Prednisone*) 5 Mg Tab, 10 MG PO DAILY, TAB 05/21/17 Discontinued Reported Medications Carvedilol* (Coreg*) 6.25 Mg Tablet, 6.25 MG PO HS, #60 TAB 03/23/18 Magnesium Oxide* (Magnesium Oxide*) 400 Mg Tablet, 400 MG PO TID, TAB 05/21/17 Pantoprazole* (Protonix*) 20 Mg Tablet.dr, 40 MG PO DAILY, TAB 05/21/17 Labetalol Hcl* (Labetalol Hcl*) 100 Mg Tablet, 200 MG PO TID, TAB 05/21/17 Diltiazem Hcl* (Cardizem CD*) 120 Mg Cap.sr.24h, 120 MG PO DAILY, #30 CAP 05/21/17 Valganciclovir* (Valcyte*) 450 Mg Tablet, 450 MG PO DAILY, TAB 05/21/17 Mycophenolate Mofetil* (Cellcept*) 250 Mg Capsule, 250 MG PO BID, CAP TAKE 2 TAB-9AM,AND 1 TAB-9PM 05/21/17 Tacrolimus* (Prograf*) 1 Mg Capsule, 5 MG PO Q12, CAP 05/21/17 Tacrolimus* (Prograf*) 0.5 Mg Capsule, 0.5 MG PO Q12, CAP 05/21/17 Discontinued Scripts Furosemide* (Furosemide*) 20 Mg Tablet, 20 MG PO DAILY, #60 TAB Prov:JONO LAMBERT MD 06/23/17 Warfarin Sodium (Coumadin) 10 Mg Tablet, 10 MG PO DAILY@17 for 30 Days, #30 TAB Take your Coumadin as you were previously with no changes Prov:JONO LAMBERT MD 06/23/17 Insulin Glargine* (Lantus*) 100 Unit/Ml Soln, 40 UNIT SC QHS, #1 VIAL Prov:JONO LAMBERT MD 06/23/17 Follow-up Plan Follow-up with primary care physician within 1-2 weeks Follow up with outpatient supervisor reclamation within 1 week Follow-up with home health php developer Provider Not On Staff Doctor Time spent on discharge: > 30 minutes Pending Labs Laboratory Tests Test 03/24/18 14:36 03/24/18 17:17 03/24/18 22:19 03/24/18 23:56 Bedside 327 271 274 314 Glucose mg/dL (70-220) mg/dL (70-220) mg/dL (70-220) mg/dL (70-220) Test 03/25/18 04:52 03/25/18 05:06 03/25/18 07:43 03/25/18 11:21 Bedside 296 228 196 Glucose mg/dL (70-220) mg/dL (70-220) mg/dL (70-220) White Blood 3.9 Count 10^3/ul (4.8-1 0.8) Red Blood 4.48 Count 10^6/ul (4.70- 6.10) Hemoglobin 13.5 g/dl (14.0-18. 0) Hematocrit 42.6 % (42.0-52.0) Mean 95.1 Corpuscular fl (82.0-101.0 Volume ) Mean 30.1 Corpuscular pg (29.0-33.0) Hemoglobin Mean 31.7 Corpuscular g/dl (32.0-37. Hemoglobin Conc 0) ent Red Cell 13.7 Distribution % (11.5-14.5) Width Platelet Count 161 10^3/UL (140-4 15) Mean Platelet 10.8 Volume fl (7.4-10.4) Immature 0.300 Granulocytes % % (0.001-0.429 ) Neutrophils % 60.9 % (39.0-77.0) Lymphocytes % 28.3 % (15.0-51.0) Monocytes % 8.4 % (0.0-11.0) Eosinophils % 1.3 % (0.0-7.0) Basophils % 0.8 % (0.0-2.0) Nucleated Red 0.0 Blood Cells % /100WBC (0.0-0 .0) Immature 0.010 Granulocytes # 10^3/ul (0.0-0 .031) Neutrophils # 2.4 10^3/ul (1.6-7 .5) Lymphocytes # 1.1 10^3/ul (0.8-2 .9) Monocytes # 0.3 10^3/ul (0.3-0 .9) Eosinophils # 0.1 10^3/ul (0.0-0 .5) Basophils # 0.0 10^3/ul (0.0-0 .1) Nucleated Red 0.0 Blood Cells # 10^3/ul (0.0-0 .0) Sodium Level 142 mmol/L (135-14 4) Potassium 4.3 Level mmol/L (3.5-5. 1) Chloride Level 105 mmol/L (97-110 ) Carbon Dioxide 26 Level mmol/L (21-31) Anion Gap 11 (5-13) Blood Urea 13 Nitrogen mg/dl (7-20) Creatinine 0.78 mg/dl (0.61-1. 24) Est Glomerular > 60 Filtrat mL/min (>60) Rate mL/min Glucose Level 229 mg/dl (70-220) Calcium Level 9.3 mg/dl (8.4-10. 2) Magnesium 1.9 Level mg/dl (1.7-2.5 ) BRANDON VERMA Mar 25, 2018 14:27
--- NOTE | 2018-03-25 15:25 | RADRPT ---
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 Physician: EULALIA GARAY Quality: Good Procedures: Transthoracic echocardiogram with complete 2D, M-Mode, and doppler examination. Indications: Evaluate Left Ventricular function. 2D/M Mode Doppler Measurement Value Normal Ranges Measurement Value Normal Ranges LVIDd 2D 2.7 3.5 - 5.6 cm AV Mean Catracho 0.9 m/sec LVIDs 2D 1.8 2.1 - 4.1 cm AV Mean PG 4.0 mmHg LVPWd 2D 2.5 0.6 - 1.1 cm AV Peak Catracho 1.6 m/sec IVSd 2D 2.4 0.6 - 1.1 cm AV Peak PG 10.0 mmHg AoR Diam 2D 3.1 2.0 - 3.7 cm AV VTI 26.3 cm LA/Ao 2D 1 0 - 1 LVOT Mean Catracho 0.8 m/sec EF 2D 65.0 50.0 - 65.0 % LVOT Mean PG 3.0 mmHg LA Dimen 2D 4.0 2.3 - 4.0 cm LVOT Peak Catracho 1.2 m/sec IVC Diam 2.9 1.2 - 2.0 LVOT Peak PG 6.0 mmHg MV E Peak Catracho 1.0 m/sec MV PHT 64.0 msec MV Decel Time 218 msec MV Decel Whitman 4 MV PHT 64.0 msec MVA PHT 3.4 cm2 TR Peak Catracho 2.4 m/sec TR Peak PG 24.0 mmHg RVSP 27.0 mmHg RA Pressure 3.0 Findings Left Ventricle: Normal left ventricular systolic function. Severe concentric left ventricular hypertrophy. Ejection fraction is visually estimated at 6065 %. Tissue Doppler/Mitral Doppler indices are indeterminate in this study due to the presence of Atrial fibrillation. Right Ventricle: Severe enlargement of right ventricle. Left Atrium: The left atrium is normal in size. Right Atrium: The right atrium is normal in size. RA Pressure=3. Mitral Valve: Normal appearance and function of the mitral valve with trace physiologic regurgitation. Moderate mitral annular calcification. Aortic Valve: Aortic sclerosis without significant stenosis. No aortic regurgitation. Tricuspid Valve: Normal appearance and function of the tricuspid valve with trace physiologic regurgitation. Normal right ventricular systolic pressure. Estimated peak PA systolic pressure 27 mmHg. Pulmonic Valve: Normal pulmonic valve appearance. Pericardium: Normal pericardium with no significant pericardial effusion. Aorta: Normal aortic root. IVC: Dilated IVC with respiratory collapse consistent with elevated right atrial pressure. Conclusions 1.Normal left ventricular systolic function. Severe concentric left ventricular hypertrophy. Ejection fraction is visually estimated at 60-65 %. Tissue Doppler/Mitral Doppler indices are indeterminate in this study due to the presence of Atrial fibrillation. 2.Severe enlargement of right ventricle. 3.Normal appearance and function of the mitral valve with trace physiologic regurgitation. Moderate mitral annular calcification. 4.Normal appearance and function of the tricuspid valve with trace physiologic regurgitation. Normal right ventricular systolic pressure. Estimated peak PA systolic pressure 27 mmHg. Electronically Signed By: Ascencion Karimi 25-Mar-2018 15:24:17 -0800 Patient Name: KADE GIRON Study Date: 24-Mar-2018 [id number]
== END 2018-03-25 14:12 | disposition home health service (06) ==
LOC: E/R 13:17 → 6WM 16:46
PROVIDERS: ADMIT Internal Medicine; ATTEND Internal Medicine
DX: R06.89 Other abnormalities of breathing (principal); R06.02 Shortness of breath; I48.91 Unspecified atrial fibrillation; I48.92 Unspecified atrial flutter; J18.9 Pneumonia, unspecified organism; I11.0 Hypertensive heart disease with heart failure; I50.30 Unspecified diastolic (congestive) heart failure; E11.649 Type 2 diabetes mellitus with hypoglycemia without coma; Z94.0 Kidney transplant status; Z79.4 Long term (current) use of insulin; Z79.01 Long term (current) use of anticoagulants
CPT/HCPCS: 71045; 71046; 80048; 81001; 82550; 82553; 82962; 83036; 83605; 83735; 84100; 84484; 85025; 85610; 87040; 87086; 93005; 93306; 93971; 96374; 96375; 97116; 97161; 97530; 99285; G0378; J0692; J0696; J1815; J1940; J3370; J3475; J7512; J7517

== ENCOUNTER 2018-04-03 00:12 | Inpatient (IN) | payer OTHER ==
[2018-04-03] VITALS (11 sets, daily range): BP systolic 116–179; BP diastolic 56–81; PULSE 59–120; RESP 17–19; Ht 177.8 cm; Wt 97.7 kg
[~2018-04-03] VITALS: Ht 177.8 cm; Wt 97.7 kg
[~2018-04-03 00:12] MED LIST changes: +ACET500C5 PO; +APIX5TAB PO; +BUME1TAB PO; +CARV12.598 PO; -COU10 PO; -DILT120C77 PO; +DILT360C27 ORAL; +DOXY100C PO; -FURO20TA3 PO; +IRBE300T15 PO; -LABE100T7 PO; +MELA10CA PO; -PANT20TA2 PO; -TACR0.5C18 PO; -TACR1CAP26 PO; +TACR4TAB PO; +UMEC1DIS INHALATION; -VALC450 PO
[2018-04-03] MEDS ORDERED: ALBUTEROL 0.083% (NEB) 2.5 MG/3 ML AMP INH STA (00:17)
[2018-04-03] MEDS ORDERED: IPRATROPIUM (NEB) 0.5 MG/2.5 ML AMP INH STA (00:17)
--- NOTE | 2018-04-03 01:16 | ERD ---
ER Documentation Chief Complaint Chief Complaint BIB RA39 for SOB while at home, no CP HPI 67-year-old male with a history of ESRD status post kidney transplant, A. fib, CHF, and COPD presenting to the ER by ambulance complaining of shortness of breath that started while he was at home. He was going to sleep when his shortness of breath got worse. He denies any associated chest pain or palpitations. When ambulance picked him up, his oxygen saturation was 87%, improved with oxygen by nonrebreather mask. EKG did not show any significant abnormalities. Patient states that he was here about 2 weeks ago admitted to the hospital for similar symptoms. ROS All systems reviewed and are negative except as per history of present illness. Medications Home Meds Active Scripts Doxycycline* (Vibramycin*) 100 Mg Capsule, 100 MG PO BID for 5 Days, EA Starting 03/26/2018 Prov:Jethro VERMASocratesKATLYN F 03/25/18 Reported Medications Tacrolimus (Envarsus Xr) 4 Mg Tab.er.24h, 4 MG PO DAILY 03/23/18 Umeclidinium Brm-Vilanterol Tr (Anoro Ellipta) 62.5-25 Mcg Disk.w.dev, 1 EACH INHALATION DAILY, #1 DISK 03/23/18 Acetaminophen* (Tylophen*) 500 Mg Capsule, 500 MG PO Q6H PRN for PAIN LEVEL 1-3, TAB 03/23/18 Melatonin (Melatonin) 10 Mg Capsule, 10 MG PO HS, CAP 03/23/18 Apixaban* (Eliquis*) 5 Mg Tablet, 5 MG PO BID, TAB 03/23/18 Insulin Glargine* (Lantus*) 100 Unit/Ml Soln, 80 UNIT SC QHS, #1 VIAL 03/23/18 Irbesartan* (Irbesartan*) 300 Mg Tablet, 300 MG PO DAILY, TAB 03/23/18 Magnesium Oxide* (Magnesium Oxide*) 400 Mg Tablet, 400 MG PO BID, TAB 03/23/18 Carvedilol* (Coreg*) 12.5 Mg Tablet, 12.5 MG PO AM, #60 TAB 03/23/18 Mycophenolate Mofetil* (Cellcept*) 250 Mg Capsule, 500 MG PO BID, CAP 03/23/18 Bumetanide* (Bumetanide*) 1 Mg Tablet, 1 MG PO DAILY, TAB 03/23/18 Diltiazem Hcl (Diltiazem Er) 360 Mg Capsule.sa, 360 MG ORAL DAILY 03/23/18 Ergocalciferol (Vitamin D2) (VITAMIN D2) 50,000 Unit Capsule, 91592 UNIT PO Q7D, CAP Fridays05/21/17 Insulin Lispro (Humalog Kwikpen U-100) 100 Unit/1 Ml Insuln.pen, 15 UNIT SQ TID, EA 05/21/17 Phosphorus #1 (Phospha 250 Neutral Tablet) 250 Mg Tablet, 250 MG PO DAILY, TAB 05/21/17 Latanoprost (Xalatan) 2.5 Ml Drops, 1 DROP BOTH EYES QHS, #1 BOTTLE 05/21/17 Doxazosin Mesylate* (Cardura*) 8 Mg Tablet, 8 MG PO DAILY for 30 Days, TAB 05/21/17 Multivitamins* (Theragran*) 1 Tab Tab, 1 TAB PO DAILY, TAB 05/21/17 Prednisone* (Prednisone*) 5 Mg Tab, 10 MG PO DAILY, TAB 05/21/17 Allergies Allergies: Coded Allergies: No Known Allergy (Unverified , 03/24/18) PMhx/Soc History of Surgery: Yes (RIGHT KIDNEY TRANSPLANT,PENILE IMPLANT) Anesthesia Reaction: No Hx Neurological Disorder: No Hx Respiratory Disorders: No Hx Cardiac Disorders: Yes (HTN,AFIB,CHF) Hx Psychiatric Problems: No Hx Miscellaneous Medical Probl: Yes (Insulin-dependent diabetes, ESRD status post kidney transplant) Hx Alcohol Use: No Hx Substance Use: No Hx Tobacco Use: No Smoking Status: Former smoker FmHx Family History: No diabetes Physical Exam Vitals Vital Signs Date Temp Pulse Resp B/P (MAP) Pulse Ox O2 O2 Flow FiO2 Time Delivery Rate 04/03/18 94 23 156/70 97 Nasal 4.0 02:36 (98) Cannula 04/03/18 85 16 100 Non 15.0 00:30 Rebreather Mask 04/03/18 Non 15.0 00:15 Rebreather 04/03/18 Non 15 00:15 Rebreather 04/03/18 99.6 100 35 187/85 81 00:13 (119) Physical Exam Const: No acute distress nontoxic, in mild respiratory distress, speaking in short sentences Head: Atraumatic Eyes: Normal Conjunctiva ENT: Normal External Ears, Nose and Mouth. No JVD Neck: Full range of motion. No meningismus. Resp: Diminished breath sounds bilaterally with both inspiratory and expiratory wheezing. No rales or rhonchi Cardio: Regular rate and rhythm, no murmurs Abd: Soft, distended, nontender. Normal bowel sounds Skin: No petechiae or rashes Back: No midline or flank tenderness Ext: 2+ bilateral pitting pedal edema Neur: Awake and alert Psych: Normal Mood and Affect Result Diagram: 04/03/180 04/03/18 0030 Results 24 hrs Laboratory Tests Test 04/03/18 00:17 04/03/18 00:30 04/03/18 00:40 Blood Gas Specimen Source Blood venous Arterial Blood Date Drawn 04/03/2018 12:30:57 AM Arterial Blood Gas VENOUS LINE Puncture Site Twin Test N/A Venous Blood pH 7.367 Venous Blood pCO2 41.2 mmHG (Temp Corrected) Venous Blood pO2 51.1 mmHG (Temp Corrected) Venous Blood HCO3 23.1 mmol/L Venous Blood Oxygen 84.2 mmHG Saturation Venous Blood Base Excess -2.1 mmol/L Venous Blood Total 13.5 g/dl Hemoglobin Venous Blood Oxyhemoglobin 82.8 % Venous Blood Methemoglobin 0.1 % Carboxyhemoglobin 1.6 % Blood Gas Temperature 37.0 C Blood Gas Modality MASK - NRB FiO2 100.0 % Blood Gas Notified Whom MG Blood Gas Notified Time 04/03/2018 12:36:17 AM White Blood Count 5.1 10^3/ul Red Blood Count 4.12 10^6/ul Hemoglobin 12.3 g/dl Hematocrit 39.4 % Mean Corpuscular Volume 95.6 fl Mean Corpuscular 29.9 pg Hemoglobin Mean Corpuscular 31.2 g/dl Hemoglobin Concent Red Cell Distribution 13.8 % Width Platelet Count 153 10^3/UL Mean Platelet Volume 10.9 fl Immature Granulocytes % 0.200 % Neutrophils % 75.0 % Lymphocytes % 15.8 % Monocytes % 8.0 % Eosinophils % 0.6 % Basophils % 0.4 % Nucleated Red Blood Cells 0.0 /100WBC % Immature Granulocytes # 0.010 10^3/ul Neutrophils # 3.8 10^3/ul Lymphocytes # 0.8 10^3/ul Monocytes # 0.4 10^3/ul Eosinophils # 0.0 10^3/ul Basophils # 0.0 10^3/ul Nucleated Red Blood Cells 0.0 10^3/ul # Sodium Level 141 mmol/L Potassium Level 4.4 mmol/L Chloride Level 102 mmol/L Carbon Dioxide Level 26 mmol/L Anion Gap 13 Blood Urea Nitrogen 23 mg/dl Creatinine 1.24 mg/dl Est Glomerular Filtrat > 60 mL/min Rate mL/min Glucose Level 384 mg/dl Calcium Level 9.4 mg/dl Total Bilirubin 0.6 mg/dl Direct Bilirubin 0.00 mg/dl Indirect Bilirubin 0.6 mg/dl Aspartate Amino 23 IU/L Transf (AST/SGOT) Alanine 29 IU/L Aminotransferase (ALT/SGPT ) Alkaline Phosphatase 94 IU/L Troponin I 0.024 ng/ml B-Type Natriuretic Peptide 838 PG/ML Total Protein 7.3 g/dl Albumin 4.0 g/dl Globulin 3.30 g/dl Albumin/Globulin Ratio 1.21 POC Venous Lactate 1.4 mmol/L Current Medications Medications Dose Sig/Sheila Start Time Status Last (Trade) Ordered Route PRN Stop Time Admin Dose Reason Admin Albuterol 5 mg ONCE STAT 04/03/18 DC 04/03/18 (Proventil INH 00:17 00:29 0.083% (Neb)) 04/03/18 00:18 Ipratropium 0.5 mg ONCE STAT 04/03/18 DC 04/03/18 Kila INH 00:17 00:30 (Atrovent 04/03/18 00:18 0.02% (Neb)) 1 tab ONCE ONCE 04/03/18 DC 04/03/18 Nitroglycerin SL 01:30 01:27 04/03/18 01:31 (Nitroglyceri n (Sl Tab) 0.4 Mg) Bumetanide 1 mg NOW ONCE 04/03/18 DC 04/03/18 (Bumex) IV 01:30 01:33 04/03/18 01:31 Ondansetron 4 mg ER BRIDGE 04/03/18 HCl (Zofran PRN IV 02:30 Inj) NAUSEA/VOMITI 04/04/18 02:29 NG 650 mg ER BRIDGE 04/03/18 Acetaminophen PRN PO 02:30 (Tylenol .MILD PAIN 04/04/18 02:29 Tab) 1-3 OR TEMP Procedures/MDM EMERGENT LABS AND DIAGNOSTIC STUDIES: Lab Results above were reviewed and interpreted by me. Labs show evidence of hyperglycemia with mild BUN elevation. No evidence of myocardial ischemia. 12-lead EKG was interpreted by Lamont Cortez MD: Atrial flutter with variable block at 93 bpm Left axis deviation Normal intervals Inferior Q waves, abnormal R wave progression No acute ST or T wave changes suggestive of acute ischemia or STEMI. Radiology Results as interpreted by Radiology below were reviewed by Chetan Cortez MD: Chest x-ray shows patchy infiltrates likely secondary to interstitial edema Initial Nursing notes reviewed. Previous Medical Records requested via the Electronic Health Record. EMERGENCY DEPARTMENT COURSE / MEDICAL DECISION MAKING: Patient is presenting with acute onset of shortness of breath and chest x-ray that shows evidence of fluid overload. He was tachypneic and hypoxic upon arrival. However have a low suspicion for sepsis or pneumonia. Patient recently received treatment for pneumonia. I think the clinical picture is more consistent with CHF exacerbation. VBG does not show evidence of hypercapnia. I doubt COPD exacerbation. Doubt acute coronary syndrome. Doubt pulmonary embolism. Patient treated with nitroglycerin and 1 dose of Bumex IV. He was also given a breathing treatment initially with some improvement of symptoms upon reevaluation. At this point I do not think the patient stable for discharge and will require admission for diuresis and further stabilization. Critical Care Time: 40 minutes Treatments/Evaluations: Close monitoring and treatment of unstable vital signs, cardiorespiratory, and neurologic status, while maintaining tight balance of fluid, respiratory, and cardiac interventions. This time includes discussing the case with the patient and the patients family. This time does not include all procedures stated elsewhere in this record. This time also includes reviewing old records, labs and radiological studies. This time includes examining and re- examining the patient. Additionally, this time also includes arranging care with admitting and consulting physicians. Accepting Care Team: Current data and ongoing care discussed. Time: Time of admission Primary Provider: Dr. Benjamin Veloz Diagnosis: Primary Impression: Acute respiratory failure with hypoxia Additional Impressions: Acute exacerbation of CHF (congestive heart failure) Heart failure type: diastolic Qualified Codes: I50.33 - Acute on chronic diastolic (congestive) heart failure Hyperglycemia Condition: Serious KASSIE CORTEZ MD Apr 03, 2018 01:16
[2018-04-03] MEDS ORDERED: BUMETANIDE 1 MG INJ IV ONE ×3 (01:30→09:30)
[2018-04-03] MEDS ORDERED: NITROGLYCERIN (SL) 0.4 MG TAB SL ONE (01:30)
[2018-04-03] MEDS ORDERED: ONDANSETRON 4 MG INJ IV PRN ×2 (02:30→05:30)
[2018-04-03] MEDS ORDERED: ACETAMINOPHEN 325 MG TAB PO PRN ×2 (02:30→05:30)
--- NOTE | 2018-04-03 03:30 | NUR ---
RN Notes Received patient from ER. Tele monitor attached, initial vitals taken, skin pictures taken. All belongings with patient - call phone, robe, personal bag. No pain, no SOB. Will continue to monitor.
[2018-04-03] MEDS ORDERED: hydrALAzine 20 MG INJ IV PRN (05:30)
[2018-04-03] MEDS ORDERED: GLUCOSE GEL 15 GRAM TUBE BUCCAL PRN (06:00)
[2018-04-03] MEDS ORDERED: DEXTROSE 50% 50 ML SYRINGE IV PRN ×2 (06:00)
[2018-04-03] MEDS ORDERED: GLUCOSE GEL 15 GRAM TUBE PO PRN ×2 (06:00)
[2018-04-03] MEDS ORDERED: GLUCAGON 1 MG INJ IM PRN (06:00)
--- NOTE | 2018-04-03 06:23 | NUR ---
EOSS AAOx4, O2 sat good on 3L NC, no SOB, no complaints of pain. Elevated BP of 179/74, Dr. Alexander made aware, 10mg IV hydralazine PRN given x1. Hourly rounding done, encouraged pt. to reposition self in bed frequently. Patient stable at this time, will endorse to oncoming shift.
--- NOTE | 2018-04-03 07:00 | NUR ---
RN Notes Patient complaint of urine retention, bladder scan showed residual of 500ml. Dr. Alexander made aware and orders received to insert Seaman. Immediate urine return of 900ml
[2018-04-03] MEDS: INSULIN ASPART [NOVOLOG] 3 ML PEN SC SCH ×6 (07:59→20:30)
[2018-04-03] MEDS ORDERED: ACETAMINOPHEN 500 MG TAB PO PRN (08:30)
[2018-04-03] MEDS ORDERED: TACROLIMUS 4 MG PO SCH (09:00)
[2018-04-03] MEDS ORDERED: NON-FORMULARY/PATIENT OWN MED (Umeclidinium Brm-Vilanterol Tr (Anoro Ellipta) 1 EACH) INHALATION SCH (09:00)
[2018-04-03] MEDS ORDERED: POTASSIUM CHLORIDE (SR) 20 MEQ TAB PO STA (09:16)
[2018-04-03] MEDS: [UNRECOGNIZED DRUG - OTHER] XX SCH ×2 (10:37→18:10)
[2018-04-03] MEDS: ENVARSUS XX SCH ×2 (10:37→18:10)
[2018-04-03] MEDS: LOSARTAN 50 MG TAB PO SCH (10:45)
[2018-04-03] MEDS: DILTIAZEM (CD) 180 MG CAP PO SCH (10:45)
[2018-04-03] MEDS: DOXAZOSIN 4 MG TAB PO SCH (10:46)
[2018-04-03] MEDS: predniSONE 10 MG TAB PO SCH (10:46)
--- NOTE | 2018-04-03 10:48 | NUR ---
Wound Care Consult: 67-year-old male with a history of ESRD status post kidney transplant, A. fib, CHF, and COPD presenting to the ER by ambulance complaining of shortness of breath that started while he was at home. He was going to sleep when his shortness of breath got worse. He denies any associated chest pain or palpitations. When ambulance picked him up, his oxygen saturation was 87%, improved with oxygen by nonrebreather mask. EKG did not show any significant abnormalities. Patient states that he was here about 2 weeks ago admitted to the hospital for similar symptoms. Wound care consulted for wounds present on admission Left foot great toe vascular/diabetic wound. 1cm x0.8cm x 0.1cm. Wound bed with pink hypergranulation tissue. scant-small serosanguineous drainage noted. Wound edge with callous formation. No odor. denies pain. Per patient, patient seen at out-patient podiatry clinic from [place] ( Patient unable to recall name of provider). Treatment recommendation include, cleanse area with normal saline, pat dry, apply Santyl ointment and cover with dry dressing daily and as needed. Sacrococcyx clean and intact Bilateral heels clean and intact Encourage patient to reposition per department protocol Elevate heels with pillows to off-load. ALEXIS discussed with alex Guthrie airset molder and treatment recommendation Hadley Bronson RN MSN WOCN CM
[2018-04-03] MEDS ORDERED: INSULIN LISPRO 100 UNIT/ML VIAL SC SCH (11:30)
--- NOTE | 2018-04-03 11:49 | HP ---
DATE OF ADMISSION: 04/03/2018 CHIEF COMPLAINT: Shortness of breath. HISTORY OF PRESENT ILLNESS: A 67-year-old male with known history of diastolic congestive heart fail ure, hypertension, atrial fibrillation, and COPD, presented to ER with complaint of progressive short ness of breath which started at home a few hours prior to admission. The patient denies any chest pa in or palpitations. He denies any cough. Initial evaluation in the Emergency Room revealed congesti ve heart failure exacerbation. The patient was also noted to have urinary retention. 900 mL of urin e was obtained following Seaman catheter placement. The patient was recently hospitalized at [facility]. He underwent stress test with no evidence of ischemia. A 2D echo showed EF of 50% with diastolic dysfunction. The patient admits to noncompliance with increasing fluid intake. PAST MEDICAL HISTORY: 1. Hypertension. 2. Diastolic congestive heart failure. 3. Chronic obstructive pulmonary disease. 4. Type 2 diabetes mellitus. 5. Status post renal transplant. PHYSICAL EXAMINATION: GENERAL: Well-developed, well-nourished male who is in no apparent distress. VITAL SIGNS: Stable. He is afebrile. HEENT: Extraocular muscles intact. Pupils equal and reactive to light bilaterally. Sclerae are ani cteric. Oropharynx is clear and moist. NECK: Supple, no JVD, no carotid bruits. LUNGS: Mild crackles at the bases. CARDIAC: Regular rate and rhythm. No murmurs, rubs or gallops. ABDOMEN: Soft, nontender, nondistended, normoactive bowel sounds. EXTREMITIES: No clubbing, cyanosis, or edema. NEUROLOGICAL: Grossly nonfocal. LABORATORY DATA: BMP was within normal limit except a blood sugar of 392. CBC was normal. Chest x- ray showed interstitial edema consistent with congestive heart failure. ASSESSMENT: 1. A 67-year-old male with acute diastolic congestive heart failure exacerbation. 2. Hypertension. 3. Urinary retention status post Seaman catheter placement. 4. Type 2 diabetes mellitus. 5. Status post renal transplant. PLAN: Place in tele observation, continue IV Bumex. Monitor INR closely. Start Flomax 0.4 mg daily . The patient will need urological evaluation as outpatient. Dictated By: EULALIA ACE/SONALI Conf#: [id number] DID#: [id number] CC: CATHY RANDALL MD;*[facility]*
[2018-04-03] MEDS: BUMETANIDE 1 MG INJ IV SCH (17:30)
--- NOTE | 2018-04-03 19:07 | NUR ---
EOSS: PT ADMITTED WITH FLUID OVERLOAD. NOTED PT DRINKS A LOT OF FLUIDS AND KEEPS ASKING FOR APPLE JUICE AND CRACKERS. INSTRUCTED ON DIABETIC PRECAUTIONS BUT PT STATED" I KNOW, I JUST WANT JUICE". F/C CATH INSERTED THIS AM DUE TO BLADDER DISTENSION. URINE OUTPUT ALMOST 4 L.WOUND CARE CONSULT DONE. ALL NEEDS MET. CONTINUE POC.
[2018-04-03] MEDS ORDERED: INSULIN GLARGINE [LANTus] (100 UNITS/ML) SYG SC SCH ×2 (20:00→21:00)
[2018-04-03] MEDS ORDERED: LATANOPROST 0.005% 2.5 ML OPH BOTH EYES SCH (21:00)
[2018-04-03] MEDS ORDERED: TAMSULOSIN (SR) 0.4 MG CAP PO SCH (21:00)
[2018-04-04] VITALS: PULSE 58
[2018-04-04] MEDS: [UNRECOGNIZED DRUG - OTHER] XX SCH (03:00)
[2018-04-04] MEDS: ENVARSUS XX SCH (03:00)
[2018-04-04 03:45] VITALS: BP 144/69; PULSE 66; RESP 18
[2018-04-04 04:00] VITALS: PULSE 59
[2018-04-04] MEDS: BUMETANIDE 1 MG INJ IV SCH (05:25)
--- NOTE | 2018-04-04 06:20 | NUR ---
EOSS AAOx4, VSS, O2 sat good on 2L NC, no SOB, no complaints of pain. Patient still receiving scheduled diuretics, Seaman output of 850ml during shift. Hourly rounding done, call light within reach, encouraged pt. to reposition self in bed frequently. Patient stable at this time, will endorse to oncoming shift.
[2018-04-04] MEDS: INSULIN ASPART [NOVOLOG] 3 ML PEN SC SCH ×2 (07:00→08:42)
[2018-04-04 07:25] VITALS: BP 164/74; PULSE 55; RESP 19
[2018-04-04 08:01] VITALS: PULSE 60
[2018-04-04] MEDS: LOSARTAN 50 MG TAB PO SCH (08:57)
[2018-04-04] MEDS ORDERED: BUME1TAB PO (08:57)
[2018-04-04] MEDS: DOXAZOSIN 4 MG TAB PO SCH (08:57)
[2018-04-04] MEDS ORDERED: CARV25TA79 PO (08:57)
[2018-04-04] MEDS ORDERED: TAMS-14 PO (08:57)
[2018-04-04] MEDS: DILTIAZEM (CD) 180 MG CAP PO SCH (08:57)
--- NOTE | 2018-04-04 08:59 | PDOCDIS ---
Discharge Instructions CONDITION [id number] Patient Condition: [id number] Good HOME CARE INSTRUCTIONS: [id number] Diet Instructions: [id number] Activity Restrictions: [id number] No Restrictions FOLLOW UP/APPOINTMENTS Follow-up Plan pcp 1 week urology mariah REFERRALS Other Referrals leave tatum in until seen by urology EULALIA GARAY MD Apr 04, 2018 08:59
[2018-04-04] MEDS ORDERED: COLLAGENASE 5 GM (UD JAR) TOP SCH (09:00)
[2018-04-04] MEDS: predniSONE 10 MG TAB PO SCH (09:01)
--- NOTE | 2018-04-04 11:30 | NUR ---
Pt given scrips, D/C instructions from with explanations, follow-up orders etc. Pt has Seaman urinary catheter in place and will keep until seen by urology. Pt understands to return to [facility] if there are any problems with Seaman cath - leakage, bladder discomfort , etc. Urinal given to aid pt in recording urine output from cath. All pt questions answered. IV out, Tele-ashkan to RN station. Pt taken by melissa to ride, all belongings w/pt.
--- NOTE | 2018-04-04 11:44 | DS ---
DATE OF ADMISSION: 04/03/2018 DATE OF DISCHARGE: 04/04/2018 DISCHARGE DIAGNOSES: 1. Acute diastolic congestive heart failure exacerbation, resolved. 2. Hypertension, well controlled. 3. Urinary retention, status post Seaman catheter placement. 4. Benign prostatic hyperplasia. 5. Type 2 diabetes mellitus. 6. Status post renal transplant. HOSPITAL COURSE: A 67-year-old very pleasant gentleman with known history of diastolic congestive he art failure, hypertension, atrial fibrillation, and COPD, presented to emergency room with complaints of recurrent shortness of breath and dyspnea on exertion. The patient was diagnosed with diastolic congestive heart failure exacerbation. A 2D echo recently showed EF of 50% with diastolic dysfunctio n. Coreg was increased to 50 mg b.i.d. The patient received IV Bumex. Renal function was stable. His symptoms resolved. The patient is now in stable condition for discharge. A Seaman catheter was l eft in place. The patient will follow up with PCP and urology as soon as possible. MEDICATIONS ON DISCHARGE: 1. Eliquis 5 mg p.o. b.i.d. 2. Deltiazem 360 mg p.o. daily. 3. Doxazosin 8 mg daily. 4. Lantus insulin 80 units at bedtime. 5. Lispro insulin 15 units before each meal. 6. Irbesartan 300 mg daily. 7. Xalatan eyedrop. 8. Melatonin 10 mg p.o. at bedtime. 9. CellCept 500 mg p.o. b.i.d. 10. Prednisone 5 mg daily. 11. Tacrolimus 4 mg daily. 12. Coreg 50 mg b.i.d. 13. Flomax 0.4 mg daily. 14. Bumex 1 mg b.i.d. Follow up with PCP in 1 week. Follow up with urology as soon as possible. Home health nurse was requested for management of a Fole y catheter. Dictated By: EULALIA ACE/SONALI Conf#: [id number] DID#: [id number] CC: JAMES WOODARD DO; CATHY RANDALL MD;*[facility]*
== END 2018-04-04 11:32 | disposition home health service (06) | DRG 292 ==
LOC: E/R 00:12 → 6WM 02:02
PROVIDERS: ADMIT Internal Medicine; ATTEND Internal Medicine
DX: I11.0 Hypertensive heart disease with heart failure (principal); Z94.0 Kidney transplant status; I50.33 Acute on chronic diastolic (congestive) heart failure; N40.1 Benign prostatic hyperplasia with lower urinary tract symptoms; R33.8 Other retention of urine; E11.9 Type 2 diabetes mellitus without complications; Z91.19 Patient's noncompliance with other medical treatment and regimen
CPT/HCPCS: 36415; 71045; 80048; 80053; 80061; 82803; 82962; 83036; 83605; 83880; 84484; 85025; 93005; 94664; J0360; J1815; J7512